=== PATIENT | female | born 1945 | race Caucasian/White ===

== ENCOUNTER 2019-12-08 11:05 | Inpatient (IN) ==
[2019-12-08] MEDS ORDERED: fentaNYL 100 MCG/2 ML VIAL IV STA (11:37)
[2019-12-08] MEDS ORDERED: ONDANSETRON 4 MG/2 ML VIAL IV STA (11:37)
[2019-12-08 12:09] LABS: Basophils % 0.3 % (0.0-0.8); Eosinophils % 0.2 % (0.00-10.9); Hematocrit 43.7 VOL% (35.7-47.0); Hemoglobin 14.6 GM/DL (12.0-16.0); Immature Granulocytes % 0.5 %; Immature Granulocytes Absolute 0.06 #; Lymphocytes # 0.9 10*3/uL (1.4-4.0); Lymphocytes % 8.1 % (21.3-54.2); Mean Corpuscular HGB Conc 33.4 GM/DL (32-36); Mean Platelet Volume 10.3 FL (9.6-12.0); Monocytes % 5.6 % (1.7-12.7); Neutrophils % 85.3 % (38.7-73.9); Platelet Count 225 T/CUMM (130-400); Red Cell Distribution Width 14.4 % (9.3-17.3); White Blood Count 11.1 T/CUMM (4-12)
[2019-12-08 12:18] LABS: PT Patient Result 10.5 SECS (9.8-11.9)
[2019-12-08 12:29] LABS: Alanine Aminotransferase 25 U/L (13-56); Albumin 3.6 G/DL (3.4-5.0); Alkaline Phosphatase 79 U/L (45-117); Aspartate Amino Transferase 19 U/L (0-37); Blood Urea Nitrogen 12 MG/DL (7-18); Calcium 8.2 MG/DL (8.5-10.1); Estimated Glom Filtration Rate 79 ML/MIN; Glucose 104 MG/DL (74-106); Osmolality,Calculated 278.4 MOS/KG (273-304); Total Protein 6.7 G/DL (6.4-8.3); Troponin I < 0.015 NG/ML (0.00-0.045)
[2019-12-08 12:37] LABS: Apearance,Urine CLEAR (Clear); Bilirubin,Urine Negative (Negative); Blood, Urine Negative (Negative); Glucose,Urine (UA) Negative (Negative); Ketones,Urine Negative (Negative); Mucus,Urine Occasional /LPF (Occasional); Nitrite,Urine Negative (Negative); Protein,Urine Negative; RBC,Urine 1 /HPF (0-4); Urine Color Yellow (Yellow); Urine Specific Gravity 1.008 (1.001-1.035); Urine Urobilinogen < 2.0 EU/DL (0.2-1.0); WBC,Urine <1 /HPF (0-6)
[2019-12-08] MEDS ORDERED: DEXTROSE 10% 250 ML BAG IV PRN (14:37)
[2019-12-08] MEDS ORDERED: GLUCAGON 1 MG VIAL IM PRN (14:37)
[2019-12-08] MEDS ORDERED: ALBUTEROL 2.5 MG/3 ML NEB RESP TX PRN ×2 (14:40→15:30)
[2019-12-08] MEDS: MORPHINE 4 MG/1 ML VIAL IV PRN ×3 (16:02→23:58)
[2019-12-08] MEDS: POTASSIUM CHLORIDE 20 MEQ TABLET PO PRN ×3 (16:05→20:15)
[2019-12-08] MEDS: amLODIPine 5 MG TABLET PO SCH (20:14)
[2019-12-08] MEDS: ARIPiprazole 10 MG TABLET PO SCH (20:14)
[2019-12-08] MEDS: POTASSIUM CHLORIDE 10 MEQ TABLET PO SCH (20:15)
[2019-12-08] MEDS: PANTOPRAZOLE 40 MG TABLET PO SCH (20:15)
[2019-12-08 23:04] LABS: Apearance,Urine CLEAR (Clear); Bilirubin,Urine Negative (Negative); Blood, Urine Small mg/dL (Negative); Glucose,Urine (UA) Negative (Negative); Ketones,Urine Negative (Negative); Mucus,Urine Occasional /LPF (Occasional); Nitrite,Urine Negative (Negative); Protein,Urine Negative; RBC,Urine 8 /HPF (0-4); Squamous Epithelial Cell,Urine Occasional /HPF (0-10); Urine Color Yellow (Yellow); Urine Specific Gravity 1.016 (1.001-1.035); WBC,Urine 33 /HPF (0-6)
[2019-12-08] MEDS: ALPRAZolam 0.5 MG TABLET PO SCH (23:58)
[2019-12-09 02:21] LABS: Basophils % 0.5 % (0.0-0.8); Eosinophils # 0.1 10*3/uL (0.0-0.87); Eosinophils % 0.9 % (0.00-10.9); Hematocrit 41.6 VOL% (35.7-47.0); Hemoglobin 13.6 GM/DL (12.0-16.0); Immature Granulocytes % 0.2 %; Immature Granulocytes Absolute 0.02 #; Lymphocytes % 11.7 % (21.3-54.2); Mean Corpuscular HGB Conc 32.7 GM/DL (32-36); Mean Corpuscular Volume 96.5 FL (87-102); Mean Platelet Volume 10.4 FL (9.6-12.0); Monocytes % 6.2 % (1.7-12.7); Neutrophils % 80.5 % (38.7-73.9); Platelet Count 193 T/CUMM (130-400); Red Blood Count 4.31 MC/CUMM (3.8-5.5); Red Cell Distribution Width 14.4 % (9.3-17.3); White Blood Count 8.6 T/CUMM (4-12)
[2019-12-09 05:27] LABS: Calcium 7.7 MG/DL (8.5-10.1); Osmolality,Calculated 272.8 MOS/KG (273-304)
[2019-12-09] MEDS: MORPHINE 4 MG/1 ML VIAL IV PRN (06:14)
[2019-12-09] MEDS ORDERED: LOVASTATIN 20 MG TABLET PO SCH (09:00)
[2019-12-09] MEDS ORDERED: Umeclidinium-Vilanterol [Anoro Ellipta] INH SCH (09:00)
[2019-12-09] MEDS ORDERED: BUPIVACAINE SPINAL 0.75% 2 ML AMP SPINAL ONE (09:15)
[2019-12-09] MEDS ORDERED: MIDAZOLAM 2 MG/2 ML VIAL ONE (09:15)
[2019-12-09] MEDS ORDERED: DEXMEDETOMIDINE 200 MCG/2 ML VIAL ONE (09:15)
[2019-12-09] MEDS ORDERED: PHENYLEPHRINE 1 MG/10 ML SYRINGE IV ONE (09:15)
[2019-12-09] MEDS ORDERED: KETAMINE 500 MG/10 ML VIAL ONE (09:15)
[2019-12-09] MEDS ORDERED: ceFAZolin 1,000 MG VIAL ONE (10:01)
[2019-12-09] MEDS: ceFAZolin 1,000 MG in SYRINGE 1 EACH IV SCH ×3 (11:48→17:22)
[2019-12-09] MEDS: POTASSIUM CHLORIDE 10 MEQ TABLET PO SCH ×2 (11:48→21:07)
[2019-12-09] MEDS: CALCIUM (CARBONATE) 500 MG TABLET PO SCH (12:00)
[2019-12-09] MEDS: LOSARTAN 50 MG TABLET PO SCH (12:00)
[2019-12-09] MEDS: CITALOPRAM 40 MG TABLET PO SCH (12:00)
[2019-12-09] MEDS: MULTIVITAMIN (CENTRUM) TABLET PO SCH (12:00)
[2019-12-09] MEDS: CHOLECALCIFEROL 1,000 UNIT TABLET PO SCH (12:00)
[2019-12-09] MEDS: buPROPion XL 150 MG TABLET PO SCH ×2 (12:00→13:46)
[2019-12-09] MEDS: PANTOPRAZOLE 40 MG TABLET PO SCH ×2 (12:00→21:08)
[2019-12-09] MEDS: SIMVASTATIN 20 MG TABLET PO SCH (12:00)
[2019-12-09] MEDS: ARIPiprazole 10 MG TABLET PO SCH (21:07)
[2019-12-09] MEDS: amLODIPine 5 MG TABLET PO SCH (21:07)
[2019-12-09] MEDS: ALPRAZolam 0.5 MG TABLET PO SCH (21:07)
[2019-12-09] MEDS: ENOXAPARIN 40 MG/0.4 ML SYRINGE SUBCUT SCH (21:08)
[2019-12-10] MEDS: ceFAZolin 1,000 MG in SYRINGE 1 EACH IV SCH ×3 (01:22→17:45)
[2019-12-10 05:06] LABS: Basophils % 0.3 % (0.0-0.8); Eosinophils # 0.1 10*3/uL (0.0-0.87); Eosinophils % 1.5 % (0.00-10.9); Hematocrit 41.2 VOL% (35.7-47.0); Hemoglobin 13.9 GM/DL (12.0-16.0); Immature Granulocytes % 0.3 %; Immature Granulocytes Absolute 0.03 #; Lymphocytes # 0.9 10*3/uL (1.4-4.0); Lymphocytes % 10.2 % (21.3-54.2); Mean Corpuscular HGB Conc 33.7 GM/DL (32-36); Mean Corpuscular Volume 93.6 FL (87-102); Mean Platelet Volume 11.3 FL (9.6-12.0); Monocytes % 7.6 % (1.7-12.7); Neutrophils % 80.1 % (38.7-73.9); Platelet Count 176 T/CUMM (130-400); Red Cell Distribution Width 14.1 % (9.3-17.3); White Blood Count 8.6 T/CUMM (4-12)
[2019-12-10 05:31] LABS: Calcium 7.8 MG/DL (8.5-10.1); Osmolality,Calculated 271.1 MOS/KG (273-304)
[2019-12-10] MEDS: CHOLECALCIFEROL 1,000 UNIT TABLET PO SCH (08:30)
[2019-12-10] MEDS: PANTOPRAZOLE 40 MG TABLET PO SCH ×2 (08:30→20:15)
[2019-12-10] MEDS: CALCIUM (CARBONATE) 500 MG TABLET PO SCH (08:30)
[2019-12-10] MEDS: LOSARTAN 50 MG TABLET PO SCH (08:31)
[2019-12-10] MEDS: buPROPion XL 150 MG TABLET PO SCH ×2 (08:31→14:49)
[2019-12-10] MEDS: CITALOPRAM 40 MG TABLET PO SCH (08:32)
[2019-12-10] MEDS: SIMVASTATIN 20 MG TABLET PO SCH (08:32)
[2019-12-10] MEDS ORDERED: hydrALAZINE 20 MG/1 ML VIAL IV PRN (08:32)
[2019-12-10] MEDS: MULTIVITAMIN (CENTRUM) TABLET PO SCH (08:32)
[2019-12-10] MEDS: POTASSIUM CHLORIDE 10 MEQ TABLET PO SCH ×2 (08:32→20:15)
[2019-12-10] MEDS: ARIPiprazole 10 MG TABLET PO SCH (20:15)
[2019-12-10] MEDS: ENOXAPARIN 40 MG/0.4 ML SYRINGE SUBCUT SCH (20:15)
[2019-12-10] MEDS: amLODIPine 5 MG TABLET PO SCH (20:15)
[2019-12-10] MEDS: ALPRAZolam 0.5 MG TABLET PO SCH (22:06)
[2019-12-11] MEDS: ceFAZolin 1,000 MG in SYRINGE 1 EACH IV SCH ×2 (01:23→09:21)
[2019-12-11 06:25] LABS: Basophils % 0.5 % (0.0-0.8); Eosinophils # 0.3 10*3/uL (0.0-0.87); Eosinophils % 4.9 % (0.00-10.9); Hematocrit 38.8 VOL% (35.7-47.0); Hemoglobin 13.1 GM/DL (12.0-16.0); Immature Granulocytes % 0.5 %; Immature Granulocytes Absolute 0.03 #; Lymphocytes # 1.1 10*3/uL (1.4-4.0); Mean Corpuscular HGB Conc 33.8 GM/DL (32-36); Mean Corpuscular Volume 93.3 FL (87-102); Mean Platelet Volume 11.2 FL (9.6-12.0); Neutrophils % 63.1 % (38.7-73.9); Platelet Count 169 T/CUMM (130-400); Red Blood Count 4.16 MC/CUMM (3.8-5.5); Red Cell Distribution Width 14.2 % (9.3-17.3); White Blood Count 5.7 T/CUMM (4-12)
[2019-12-11 06:52] LABS: Calcium 7.9 MG/DL (8.5-10.1); Osmolality,Calculated 277.5 MOS/KG (273-304)
[2019-12-11] MEDS: POTASSIUM CHLORIDE 20 MEQ TABLET PO PRN (07:04)
[2019-12-11] MEDS: MULTIVITAMIN (CENTRUM) TABLET PO SCH (09:19)
[2019-12-11] MEDS: PANTOPRAZOLE 40 MG TABLET PO SCH (09:19)
[2019-12-11] MEDS: CALCIUM (CARBONATE) 500 MG TABLET PO SCH (09:19)
[2019-12-11] MEDS: POTASSIUM CHLORIDE 10 MEQ TABLET PO SCH (09:19)
[2019-12-11] MEDS: buPROPion XL 150 MG TABLET PO SCH ×2 (09:20→14:36)
[2019-12-11] MEDS: SIMVASTATIN 20 MG TABLET PO SCH (09:20)
[2019-12-11] MEDS: CITALOPRAM 40 MG TABLET PO SCH (09:20)
[2019-12-11] MEDS: LOSARTAN 50 MG TABLET PO SCH (09:21)
[2019-12-11] MEDS: CHOLECALCIFEROL 1,000 UNIT TABLET PO SCH (09:21)
[2019-12-11 11:29] VITALS: BP 173/74
== END 2019-12-11 15:06 | DRG 482 ==
LOC: EDUNIT# → EDBD → N.ED 11:05 → N.EDINP 12:53 → N.3E 14:04
PROVIDERS: ADMIT Internal Medicine; ATTEND Internal Medicine